=== PATIENT | female | born 1975 | race Hispanic/Latino ===

== ENCOUNTER 2022-07-29 00:52 | Emergency (ER) | payer OTHER ==
[~2022-07-29] VITALS: Ht 162.6 cm; Wt 65.3 kg
[2022-07-29 01:54] VITALS: O2SAT 100
[2022-07-29] MEDS ORDERED: KETOROLAC TROMETHAMINE 60 MG/2 ML VIAL IM ONE (02:00)
[2022-07-29] MEDS ORDERED: ORPHENADRINE C100 MG PO (02:02)
[2022-07-29] MEDS ORDERED: NAPROSYN500 MG PO (02:02)
== END 2022-07-29 02:45 | disposition home or self-care (01) ==
LOC: ER 01:06
DX: S29.011A Strain of muscle and tendon of front wall of thorax, initial encounter (principal); X50.9XXA Other and unspecified overexertion or strenuous movements or postures, initial encounter; Y92.89 Other specified places as the place of occurrence of the external cause; I10 Essential (primary) hypertension
CPT/HCPCS: 71046; 93005; 99283; J1885